=== PATIENT | male | born 1975 | race Caucasian/White ===

== ENCOUNTER 2023-05-02 12:56 | Emergency (ER) | payer OTHER, SELFPAY ==
--- NOTE | ~2023-05-02 | XR_ITS ---
EXAMINATION: XR CHEST CLINICAL INFORMATION: Question pneumonia. Question lung mass. COMPARISON: 09/16/2008. TECHNIQUE: PA and lateral views of the chest. XR/XR chest 2V FINDINGS/IMPRESSION: The left hemidiaphragm is moderately elevated, new compared with September 2008. No focal infiltrate, mass, effusion, pneumothorax, or adenopathy is seen. The cardiac silhouette appears unremarkable. The bones and soft tissues appear unremarkable.
[2023-05-02 13:02] VITALS: BP 150/90; PULSE 65; RESP 16; TEMP 36.6; O2SAT 98; BMI 28.5
--- NOTE | 2023-05-02 13:04 | ED.GENADULT ---
HPI - General Adult General Chief complaint: General Medical Stated complaint: patient came from [place] was told to get Xray Time Seen by Provider: 05/02/23 14:22 Source: patient and family Mode of arrival: ambulatory Limitations: no limitations History of Present Illness HPI narrative: 48-year-old male with a longstanding history of tobacco smoking presents to the ER with concern for abnormal chest x-ray. Per patient he was recently in [place] and was having some throat irritation so he was seen at a hospital there and had a chest x-ray which she was told was abnormal but he does not know the findings. He was told to come back to [facility] and get repeat x-rays done. Patient reports that he has some mild throat irritation but denies any shortness of breath or chest pain. He does have a chronic cough. No hemoptysis. He denies any leg swelling or leg pain. He denies any history of tuberculosis. He denies any weight loss, night sweats, fevers or chills. He does report that he started smoking when he was 16 years old and he has smoked approximately 30 cigarettes per day since then. He has never had any diagnosed lung cancer or breathing problems. He is currently on a wait list for a PCP here in the [place] Related Data Allergies Allergy/AdvReac Type Severity Reaction Status Date / Time No Known Allergies [NKA] Allergy Mild NOT Unverified 04/04/20 17:21 APPLICABLE Review of Systems Review of Systems: Yes all other systems are reviewed and are negative Constitutional: Constitutional: Reports no additional constitutional complaints, Denies body ache(s), Denies chills, Denies fever(s), Denies headache(s) and Denies weakness Eyes: Eyes: Reports no additional eye complaints and Denies change in vision ENT: Reports system reviewed and no additional complaints, except as documented, Denies dizziness, Denies headache(s), Denies nasal congestion, Denies nasal discharge, Denies neck pain and Reports sore throat Cardiovascular: Cardiovascular: Reports no additional cardiovascular complaints, Denies chest pain, Denies leg edema and Denies dyspnea Respiratory: Respiratory: Reports no additional respiratory complaints, Reports cough, Denies hemoptysis and Denies dyspnea Gastrointestinal: Gastrointestinal: Reports no additional gastrointestinal complaints, Denies abdominal pain, Denies diarrhea, Denies nausea and Denies vomiting Genitourinary: Genitourinary: Denies urinary incontinence Musculoskeletal: Musculoskeletal: Reports no additional musculoskeletal complaints, Denies back pain, Denies arthralgias, Denies joint swelling, Denies neck pain, Denies numbness and Denies tingling Integumentary/Breasts: Skin/Breast: Reports system reviewed and no additional complaints, except as docu and Denies rash Neurologic: Reports system reviewed and no additional complaints, except as documented, Denies Abnormal speech present, Denies dizziness, Denies headache(s), Denies numbness, Denies tingling and Denies weakness PMF Past Medical History Attestation statement: The following information was validated with the patient. Source: old records reviewed and nursing notes reviewed Social History Social History Smoked in Last 30 Days: Yes Advance Directives: No Advance Directives Information Provided: No Physical Exam ED Vital Signs: Vital Signs - 24 hr 05/02/23 13:02 Temperature 97.8 F Pulse Rate 65 Respiratory Rate 16 Blood Pressure 150/90 H Pulse Oximetry 98 Oxygen Delivery Method Room Air BMI result Body Mass Index 28.5 Const General: cooperative, healthy appearing, comfortable and no acute distress Orientation/consciousness: patient oriented x3 Limitations: no limitations HENMT Head: Yes normal to inspection Ears: hearing grossly normal bilaterally General nose exam: Normal external nose present Face and sinus: Yes normal facial exam Mouth: Normal oral and palatal mucosa present Throat: Yes posterior oropharynx normal and Yes tonsils normal Eyes General: appearance normal, both eyes and all related structures Pupils: Equal, round and reactive pupils present Neck Neck: Yes normal visual inspection, Yes full ROM, Yes no lymphadenopathy and Yes no meningeal signs Chest Chest palpation & inspection: normal inspection of the chest Resp Effort & Inspection: normal respiratory effort Auscultation: clear to auscultation bilaterally Cardio Rate: regular rate Rhythm: regular rhythm Peripheral pulses: Peripheral pulses 2+ throughout GI Inspection: Yes normal to inspection Palpation (GI): Soft to palpation and nontender Auscultation: normal bowel sounds Back/Spine/Pelvis Thoracic/Lumbar Spine: thoracic and lumbar spine normal to inspection Skin General skin exam: no rashes or lesions noted Neuro General: patient oriented x3, no meningeal signs, no focal motor deficits and normal sensation to monofilament Cranial nerves: Yes Equal, round and reactive pupils present Cognition (Neuro): normal cognition Speech: No Abnormal speech present Gait exam (Neuro): Normal gait present Motor exam (neuro): 5/5 motor strength present throughout Extrem General: Yes normal to inspection, Yes no pedal edema and Yes no calf tenderness Course Course Course Narrative: RME: 48 yold male presents to the ED requesting chest xray. Patient states last wednesday his [place] PCP recommend he get a chest xray. Patient deos not know why. patient asympatomic and denies every having chest pain, shortness of breath, pleurisy, leg swelling, calf pain, or recent trauma. Patient states only chronic cough. Patient has no past medical hisotry Reevaluation(s) Reevaluation #1: patient's chest x-ray shows an elevated left hemidiaphragm an which is an incidental finding. No other acute finding. Patient is nontoxic, well appearing, lungs are clear. Patient does have longstanding history of smoking which does increase his risk for malignancy overall so I do recommend he follow-up with a primary care doctor outpatient for routine follow-up and testing as needed. I did review worrisome signs and symptoms with the patient and when to return to the emergency room. Comfortable plan for discharge home. Medical Decision Making Medical Decision Making MDM Narrative: 48-year-old male with a longstanding history of tobacco smoking presents to the ER with concern for abnormal chest x-ray. Per patient he was recently in [place] and was having some throat irritation so he was seen at a hospital there and had a chest x-ray which she was told was abnormal but he does not know the findings. He was told to come back to [facility] and get repeat x-rays done. Patient reports that he has some mild throat irritation but denies any shortness of breath or chest pain. He does have a chronic cough. He denies any leg swelling or leg pain. He denies any history of tuberculosis. He denies any weight loss, night sweats, fevers or chills. He does report that he started smoking when he was 16 years old and he has smoked approximately 30 cigarettes per day since then. He has never had any diagnosed lung cancer or breathing problems. He is currently on a wait list for a PCP here in the [place] Lungs are clear. Vitals are stable. Asymptomatic here with exception of chronic cough. Will check chest x-ray Differential Diagnosis Differential Diagnoses: The differential diagnosis associated with the presentation includes PNA, malignancy Low concern for PE-PERC 0 Admission/Observation Consideration of admission/observation: Escalation of care including admission/observation considered no hypoxia or tachypnea to suggest need for advanced imaging, admission for supplemental oxygen and or specialist consultation. Independent Interpretation I performed an independent interpretation of an: Plain X-Ray Interpretation: I independently reviewed the x-ray and agree with radiology report Radiology Impression Discussion of test interpretation with radiology: I have reviewed the radiologist's reading. Radiologist Impression: [address] [place] [address] [address] XRay Report Signed Patient: Dominga Cordero MR#: [id number] : 1975 Acct:[id number] Age/Sex: 48 / M ADM Date: 05/02/23 Loc: .ED Attending Dr: Ordering Physician: Hai Watkins Date of Service: 05/02/23 Procedure(s): XR chest 2V Accession Number(s): [id number] cc: Hai Watkins; Physician,None ~ EXAMINATION: XR CHEST CLINICAL INFORMATION: Question pneumonia. Question lung mass. COMPARISON: 09/16/2008. TECHNIQUE: PA and lateral views of the chest. XR/XR chest 2V FINDINGS/IMPRESSION: The left hemidiaphragm is moderately elevated, new compared with September 2008. No focal infiltrate, mass, effusion, pneumothorax, or adenopathy is seen. The cardiac silhouette appears unremarkable. The bones and soft tissues appear unremarkable. Independent Historian Clinical information obtained from an independent historian. History obtained from or confirmed by: Other (daughter ) Tests considered The following testing was considered but not selected: PERC 0, no need for CTA Discharge Plan Discharge Clinical Impression: Cough Patient Disposition: Home, Self-Care Instructions: Chronic Cough (ED) Additional Instructions: your x-ray today shows that your diaphragm is slightly elevated on the left side which is a normal variant seen on x-ray. There is no signs of infection or cancer seen on your x-ray. We do recommend that he stop smoking. We do recommend that you follow a up with a primary care doctor for routine physical exams and testing as needed please return for chest pain, shortness of breath Referrals: Physician,None [Primary Care Provider] - 1 week Interventions: ED Discharge Assessment Last Done: 05/02/23 15:03 Discharge Date/Time: 05/02/23 15:04
== END 2023-05-02 15:04 | disposition home or self-care (01) ==
PROVIDERS: Emergency Provider Emergency Medicine
DX: R05.9 Cough, unspecified (principal); Z87.891 Personal history of nicotine dependence
CPT/HCPCS: 71046; 99283; 99284

== ENCOUNTER 2023-10-21 13:18 | Outpatient (AMB) | payer OTHER, SELFPAY ==
--- NOTE | 2023-10-21 13:19 | MHC.PC.OV ---
Vital Signs 10/21/23 13:20 Height 6 ft Weight 211 lb BMI 28.6 BP 122/82 Blood Pressure Location Rt brachial Position Sitting Pulse 73 Pulse Source Pulse Oximeter Pulse Oximetry (%) 96 Oxygen Delivery Method Room Air Intake Visit Reasons: PE Intake Note: Pt is here today for PE. Allergies No Known Allergies [NKA] Allergy (Mild, Unverified 10/21/23 13:21) NOT APPLICABLE Medication List - Last Reconciled 10/21/23 by Mitra Shen MD Combivent Respimat 20-100 mcg/actuation (ipratropium-albuterol) 1 puff inhalation Q6H NS Tobacco use date assessed: 10/21/23 Dental Screening Dental Screen Date: 10/21/23 Did you have a dental visit in the last 12 months?: Yes Did you have a dental problem in the last 6 months where you did not have access to dental care?: No Was dental information given to patient?: Patient has dentist HPI PE HPI Details Pt presents for CHILD [employer] WORK[employer] PE. Pt c/o intermittent wheezing when laying down and occasionally dry cough. Patient has a history of vocal cords polyps removed over 20 years ago. He smokes 1 pack a day and reports smoker's cough in the morning. Patient complains of bilateral lower extremities anterior tibal achiness worse at night but denies claudication. [facility] Surgical History Hx of left knee surgery Family History Father No problems noted. Mother Hypertension Arrhythmia Cerebral aneurysm Social History Household Members Other:: , Housing: House Patient Tobacco Use Status: Current everyday Tobacco user Tobacco use type: Cigarette Cigarette Packs Per Day: 1 Cigarettes Per Day: 20 e-Cigarette/Vaping Use: Never Used service: No Current occupational status: employed Cognitive needs: No Hearing needs: No Vision needs: No Questionnaire PHQ-9 Over the last 2 weeks, how often have you been bothered by any of the following problems? 1. Little interest or pleasure in doing things: not at all 2. Feeling down, depressed, or hopeless: not at all 3. Trouble falling or staying asleep, or sleeping too much: not at all 4. Feeling tired or having little energy: not at all 5. Poor appetite or overeating: not at all 6. Feeling bad about yourself - or that you are a failure or have let yourself or your family down: not at all 7. Trouble concentrating on things, such as reading the newspaper or watching television: not at all 8. Moving or speaking so slowly that other people could have noticed. Or the opposite - being so fidgety or restless that you have been moving around a lot more than usual: not at all 9. Thoughts that you would be better off or of hurting yourself in some way: not at all Total score: 0 Depression Screening Interpretation: Negative Depression Screening Done: Yes Source: Developed by Drs. Asif Kenny, Teresa Bush, Murali Munroe and colleagues, with an educational peter from [employer]. Thrive Questionnaire Date Thrive assessed: 10/21/23 I am a: Patient What is your living situation today?: I have a steady place to live Within the past 12 months, did the food you bought not last and you didn't have the money to get more?: Never true Within the past 12 months, did you worry whether your food would run out before you got money to buy more?: Never true Do you have trouble paying for medicines?: No Do you have trouble getting transportation to medical appointments?: No Do you have trouble paying your heating and electricity bill?: No Do you have trouble taking care of your child, family member or friend?: No Do you have trouble with day-to-day activities such as bathing, preparing meals, shopping, managing finances, etc.?: No Are you currently unemployed and looking for a job?: No Are you interested in more education?: No Please select the resources that you would like help with: None THRIVE Score: 0 AUDIT C Alcohol Use Questionnaire (AUDIT-C) 1. How often do you have a drink containing alcohol?: Never 3. How often do you have six or more drinks on one occasion?: Never Total Score: 0 KIRT-7 AMB Questionnaire KIRT-7 Date KIRT - 7 assessed: 10/21/23 Feeling nervous, anxious, or on edge: 0 = Not at all Not being able to stop or control worryin = Not at all Worrying too much about different things: 0 = Not at all Trouble relaxin = Not at all Being so restless that it is hard to sit still: 0 = Not at all Becoming easily annoyed or irritable: 0 = Not at all Feeling afraid as if something awful might happen: 0 = Not at all Total KIRT-7 score (0-4 normal; 5-9 mild; 10-14 moderate; 15-21 severe): 0 Source: Developed by Drs. Asif Kenny, Teresa Bush, Murali Munroe and colleagues, with an educational peter from [employer]. Review of Systems Const All systems reviewed & are unremarkable except as noted in HPI and below Reports no additional complaints Eyes Reports no additional complaints ENT Reports no additional complaints Card Reports no additional complaints Resp Reports no additional complaints GI Reports no additional complaints Reports no additional complaints Musc Reports no additional complaints Physical exam (Primary Care) Vital Signs: Last Vital Signs Pulse 73 10/21/23 13:20 BP 122/82 10/21/23 13:20 Pulse Ox 96 10/21/23 13:20 Oxygen Delivery Method Room Air 10/21/23 13:20 BMI result Body Mass Index 28.6 Tobacco/Smoking Status: Tobacco use Status Tobacco use date assessed 10/21/23 10/21/23 13:24 Patient Tobacco Use Status Current everyday Tobacco 10/21/23 13:24 Tobacco use type Cigarette 10/21/23 13:24 e-Cigarette/Vaping Use Never Used 10/21/23 13:24 PHQ-9: PHQ-9 Score PHQ-9: Total score 0 10/21/23 13:34 Depression Screening Interpretation: Negative Thrive Assessment: Date of Thrive Assessment Date Thrive assessed 10/21/23 10/21/23 13:34 Const General: no acute distress HENMT Head: Yes normal to inspection Ears: hearing grossly normal bilaterally General nose exam: Normal external nose present Mouth: Normal oral and palatal mucosa present Teeth and gingiva: dentition normal Throat: Yes posterior oropharynx normal Eyes General: appearance normal, both eyes and all related structures Neck Neck: Yes no lymphadenopathy and Yes supple Resp Effort & Inspection: normal respiratory effort Auscultation: wheezes left upper and diminished lung sounds Cardio Rhythm: regular rhythm Heart sounds: S1 normal heart sound present and S2 normal heart sound present GI Inspection: Yes normal to inspection Palpation (GI): Soft to palpation Percussion: Yes normal to percussion Auscultation: normal bowel sounds Extrem General: Yes no clubbing, cyanosis or edema Assessment and Plan Assessment & Plan (1) Vocal cord polyps: Code(s): J38.1 - Polyp of vocal cord and larynx Plan: Referred to ENT (2) Annual physical exam: Code(s): Z00.00 - Encounter for general adult medical examination without abnormal findings Plan: Well-balanced diet regular physical activity discussed with the patient he will return for fasting blood work. Patient will be referred to GI for colonoscopy. (3) Smoker: Comment: since 14 yo 1 PPD Code(s): F17.200 - Nicotine dependence, unspecified, uncomplicated Plan: Tobacco quitting discussed with the patient (4) Wheezing: Comment: CXR 05/10 elevated left diaphragm, no infiltrates or masses Code(s): R06.2 - Wheezing Plan: Check PFT and try Combivent inhaler, follow-up in 2 months Orders: Orders Lipid Panel Today F17.200 - Nicotine dependence, unspecified, uncomplicated, R06.2 - Wheezing, Z00.00 - Encounter for general adult medical examination without abnormal findings UA w Microscopic Today F17.200 - Nicotine dependence, unspecified, uncomplicated, R06.2 - Wheezing, Z00.00 - Encounter for general adult medical examination without abnormal findings PFT pulmonary function test Today F17.200 - Nicotine dependence, unspecified, uncomplicated, R06.2 - Wheezing, Z00.00 - Encounter for general adult medical examination without abnormal findings Comprehensive Met. Panel Today F17.200 - Nicotine dependence, unspecified, uncomplicated, R06.2 - Wheezing, Z00.00 - Encounter for general adult medical examination without abnormal findings Complete Blood Count Auto Diff Today F17.200 - Nicotine dependence, unspecified, uncomplicated, R06.2 - Wheezing, Z00.00 - Encounter for general adult medical examination without abnormal findings PSA,Total (Free>4and<10) Today F17.200 - Nicotine dependence, unspecified, uncomplicated, R06.2 - Wheezing, Z00.00 - Encounter for general adult medical examination without abnormal findings Vitamin B12 and Folate Today F17.200 - Nicotine dependence, unspecified, uncomplicated, R06.2 - Wheezing, Z00.00 - Encounter for general adult medical examination without abnormal findings Referrals Ear/Nose/Throat Referral J38.1 - Polyp of vocal cord and larynx, Z00.00 - Encounter for general adult medical examination without abnormal findings Gastroenterology Referral F17.200 - Nicotine dependence, unspecified, uncomplicated, R06.2 - Wheezing, Z00.00 - Encounter for general adult medical examination without abnormal findings Medications: New Combivent Respimat 20-100 mcg/actuation (ipratropium-albuterol) 1 puff inhalation Q6H 4 grams 1RF NS Coding Level of Care Code New Pt Prev Care 40-64y(04669) Diagnoses Vocal cord polyps J38.1 Annual physical exam Z00.00 Smoker F17.200 Wheezing R06.2
[2023-10-21 13:20] VITALS: BP 122/82; PULSE 73; O2SAT 96; BMI 28.6
== END 2023-10-21 14:07 | disposition home or self-care (01) ==
PROVIDERS: Visit Provider Internal Medicine
DX: J38.1 Polyp of vocal cord and larynx (principal); Z00.00 Encounter for general adult medical examination without abnormal findings; F17.200 Nicotine dependence, unspecified, uncomplicated; R06.2 Wheezing
CPT/HCPCS: 99386

== ENCOUNTER 2023-11-17 07:02 | Outpatient (REF) | payer OTHER, SELFPAY ==
[2023-11-17 11:32] LABS: MANUAL DIFF FLAG NO
[2023-11-17 11:41] LABS: Imm Gran Abs Auto 0.01 X10*3/uL (0.00-0.03); Lymphocytes Absolute Auto 1.8 X10*3/uL (1.2-4.9); Neutrophils Absolute Auto 3.8 x10*3/uL (2.0-8.3)
[2023-11-17 12:00] LABS: Appearance Urine Clear; Color Urine Yellow; Glucose Urine UA Negative (Negative); Leukocyte Esterase Urine Negative (Negative); Nitrite Urine Negative (Negative); Specific Gravity - Urine <= 1.005 (1.005-1.025); Urine Blood Negative (Negative); Urine Ketones Negative (Negative); Urine Protein Negative (Neg-Trace)
[2023-11-17 12:06] LABS: Bacteria Urine None Seen (None Seen); Hyaline Casts Urine 0-2 /LPF (0-2); RBC Urine 0-2 /HPF (0-2); Squamous Epithelial Cell Urine 0-2 /HPF (0-2); WBC Urine 0-5 /HPF (0-5)
[2023-11-17 12:15] LABS: Alanine Aminotransferase 16 U/L (0-40); Albumin Level 4.4 g/dL (3.5-5.0); Alkaline Phosphatase 57 U/L (39-117); Anion Gap 12 (12-20); Aspartate Amino Transferase 19 U/L (5-37); Bilirubin Total 0.3 mg/dL (0.0-1.0); Blood Urea Nitrogen 12 mg/dL (9-16); Calcium 9.2 mg/dL (8.4-10.2); Carbon Dioxide 24 mmol/L (22-29); Chloride 108 mmol/L (96-108); Cholesterol 142 mg/dL (<200); Estimated Glomerular Filt Rate > 60; Glucose Random 82 mg/dL (60-115); HDL Cholesterol 51 mg/dL (>40); LDL Cholesterol Calculated 85 mg/dL (<100); Potassium 4.2 mmol/L (3.3-5.1); Sodium 140 mmol/L (135-145); Total Protein 7.2 g/dL (6.5-8.0); Triglycerides 32 mg/dL (<150)
[2023-11-17 12:43] LABS: Folate 11.3 ng/mL (> or = 4.0); Vitamin B12 516 pg/mL (200-900)
== END 2023-11-17 07:03 | disposition home or self-care (01) ==
LOC: HO.WFDLDS 07:02
PROVIDERS: Visit Provider Internal Medicine
DX: Z00.00 Encounter for general adult medical examination without abnormal findings (principal); R06.2 Wheezing; F17.200 Nicotine dependence, unspecified, uncomplicated; Z12.5 Encounter for screening for malignant neoplasm of prostate
CPT/HCPCS: 36415; 80053; 80061; 81001; 82607; 82746; 84153; 85025

== ENCOUNTER 2024-06-02 13:33 | Outpatient (REF) | payer OTHER, SELFPAY ==
--- NOTE | 2024-06-02 13:44 | PFT_ITS ---
Flows: FEV1: 70 % of predicted at 2.92 L FVC: 81 % of predicted at 4.32 L FEV1/FVC: 68 % Bronchodilator response: Present in small to medium airways only Volumes: Total lung capacity: 81 % of predicted at 6.22 L Residual volume: 94 % of predicted at 1.87 L Slow vital capacity: 76 % of predicted at 4.35 L Expiratory reserve volume: 53 % of predicted at 0.85 L Diffusion capacity: Normal Impression: Moderate obstructive ventilatory defect with bronchodilator response present in small to medium airways only. MTDD
[2024-06-02 14:27] VITALS: PULSE 71; O2SAT 97
== END 2024-06-02 13:34 | disposition home or self-care (01) ==
LOC: HO.RESP 13:33
PROVIDERS: PCP Internal Medicine; Visit Provider Internal Medicine
DX: R06.2 Wheezing (principal); F17.200 Nicotine dependence, unspecified, uncomplicated
CPT/HCPCS: 94010; 94640; 94727; 94729

== ENCOUNTER → 2024-06-02 13:44 | Outpatient (BNV) | payer OTHER, SELFPAY | PROVIDERS: PCP Internal Medicine; Visit Provider Internal Medicine Pulmonary Disease | DX: R06.2 Wheezing (principal); F17.210 Nicotine dependence, cigarettes, uncomplicated | CPT/HCPCS: 94060; 94727; 94729 ==

== ENCOUNTER 2024-06-20 13:52 | Outpatient (AMB) | payer OTHER, SELFPAY ==
[2024-06-20 14:43] VITALS: BP 128/90; PULSE 76; O2SAT 96; BMI 28.9
--- NOTE | 2024-06-20 14:43 | A.OFFPC_ITS ---
Vital Signs 06/20/24 14:43 Height 6 ft Weight 213 lb BMI 28.9 BP 128/90 H Blood Pressure Location Lt brachial Position Sitting Pulse 76 Pulse Source Pulse Oximeter Pulse Oximetry (%) 96 Oxygen Delivery Method Room Air Intake Visit Reasons: Follow up on results of PFT Intake Note: Pt is here today to discuss PFT results Allergies No Known Allergies [NKA] Allergy (Mild, Unverified 06/20/24 14:43) NOT APPLICABLE Medication List - Last Reconciled 06/20/24 by Mitra Shen MD Breo Ellipta 100-25 mcg/dose (fluticasone furoate-vilanterol) 1 inh inhalation DAILY NS Combivent Respimat 20-100 mcg/actuation (ipratropium-albuterol) 1 puff inhalati on Q6H NS Tobacco use date assessed: 06/20/24 Dental Screening Dental Screen Date: 06/20/24 Did you have a dental visit in the last 12 months?: Yes Did you have a dental problem in the last 6 months where you did not have access to dental care?: No Was dental information given to patient?: Patient has dentist HPI Follow up on results of PFT HPI Details Pt presents for follow-up of asthma. He has been using Combivent on and off with good relief. Patient continues to smoke a pack a day and is planning to quit. [facility] Surgical History Hx of left knee surgery Family History Father No problems noted. Mother Hypertension Arrhythmia Cerebral aneurysm Social History Household Members Other:: , Housing: House Patient Tobacco Use Status: Current everyday Tobacco user Tobacco use type: Cigarette Cigarette Packs Per Day: 1 Cigarettes Per Day: 20 e-Cigarette/Vaping Use: Never Used service: No Current occupational status: employed Cognitive needs: No Hearing needs: No Vision needs: No Questionnaire Thrive Questionnaire Date Thrive assessed: 06/20/24 I am a: Patient KIRT-7 AMB Questionnaire KIRT-7 Date KIRT - 7 assessed: 10/21/23 Source: Developed by Drs. Asif Kenny, Teresa BMurali Gilbert and colleagues, with an educational peter from [employer]. Review of Systems Const All systems reviewed & are unremarkable except as noted in HPI and below Reports no additional complaints Eyes Reports no additional complaints ENT Reports no additional complaints Card Reports no additional complaints Resp Reports no additional complaints GI Reports no additional complaints Reports no additional complaints Physical exam (Primary Care) Vital Signs: Last Vital Signs Pulse 76 06/20/24 14:43 BP 128/90 H 06/20/24 14:43 Pulse Ox 96 06/20/24 14:43 Oxygen Delivery Method Room Air 06/20/24 14:43 BMI result Body Mass Index 28.9 Tobacco/Smoking Status: Tobacco use Status Tobacco use date assessed 06/20/24 06/20/24 14:45 Patient Tobacco Use Status Current everyday Tobacco 06/20/24 14:45 Tobacco use type Cigarette 06/20/24 14:45 e-Cigarette/Vaping Use Never Used 06/20/24 14:45 Thrive Assessment: Date of Thrive Assessment Date Thrive assessed 06/20/24 06/20/24 14:45 Const General: no acute distress HENMT Head: Yes normal to inspection Resp Effort & Inspection: normal respiratory effort Auscultation: diminished lung sounds on the left in the lower lung mata Cardio Rhythm: regular rhythm Heart sounds: S1 normal heart sound present and S2 normal heart sound present GI Inspection: Yes normal to inspection Palpation (GI): Soft to palpation Percussion: Yes normal to percussion Coding Level of Care Code Est Pt Level 3 (79442) Diagnoses Smoker F17.200 Asthma J45.909 Lung nodule seen on imaging study R91.1 Assessment & Plan Assessment & Plan (1) Smoker: Comment: since 14 yo 1 PPD Code(s): F17.200 - Nicotine dependence, unspecified, uncomplicated Category: Social Hx Plan: Tobacco quitting discussed with the patient he will try Chantix (2) Asthma: Comment: PFT 05/2024 Code(s): J45.909 - Unspecified asthma, uncomplicated Category: Medical Plan: Start Breo and use Combivent as needed only (3) Lung nodule seen on imaging study: Comment: CXR elevated left diaphragm, ? Lung nodules Code(s): R91.1 - Solitary pulmonary nodule Category: Medical Plan: Obtain CT of the chest to evaluate for lung nodules and elevated left diaphragm Orders: Orders CT chest wo con - High Res Today R06.2 - Wheezing, R91.1 - Solitary pulmonary nodule Medications: New Breo Ellipta 100-25 mcg/dose (fluticasone furoate-vilanterol) 1 inh inhalation DAILY 60 ea 3RF NS varenicline (Chantix Starting Month Box) PO PER PKG DIR 53 ea 0RF varenicline (Chantix Continuing Month Box) 1 mg PO BID 56 tabs 1RF
== END 2024-06-20 15:04 | disposition home or self-care (01) ==
PROVIDERS: PCP Internal Medicine; Visit Provider Internal Medicine
DX: F17.200 Nicotine dependence, unspecified, uncomplicated (principal); J45.909 Unspecified asthma, uncomplicated; R91.1 Solitary pulmonary nodule

== ENCOUNTER → 2024-06-20 13:52 | Outpatient (BNVA) | payer OTHER, SELFPAY | PROVIDERS: PCP Internal Medicine; Visit Provider Internal Medicine ==

== ENCOUNTER 2024-11-08 13:00 | Outpatient (AMB) | payer OTHER, SELFPAY ==
--- NOTE | 2024-11-08 13:16 | A.OFFVIS_ITS ---
Vital Signs 11/08/24 13:22 Height 6 ft Weight 212 lb BMI 28.7 BP 146/96 H Blood Pressure Location Lt brachial Position Sitting Pulse 76 Pulse Source Pulse Oximeter Pulse Oximetry (%) 96 Oxygen Delivery Method Room Air Intake Visit Reasons: pre colonoscopy Intake Note: NEW PATIENT for initial colo screening. Chief Complaint; Pt denies any GI sx or concerns at this time. No pertinent FMHx. Technology Methodology Consultant Required: Yes Technology Methodology Consultant Services: Technology Methodology Consultant Offered & Declined Accompanied by: Family/Other Allergies No Known Allergies [NKA] Allergy (Mild, Unverified 11/08/24 13:27) NOT APPLICABLE HPI HPI pre colonoscopy: Details: 49 year old? male here today for pre colonoscopy screening.? Patient was sent to us by his PCP.? This is his first colonoscopy screening.? Patient denies any gastrointestinal symptoms in the past or at present.? Denies any personal or family history of gastrointestinal disease, colon polyps, or CRC.? Denies history of difficulty with sedation or anesthesia in the past.? Negative for history of sleep apnea.? Denies any history of cardiac, renal, pulmonary, or hepatic disease.?? No history of infectious? diseases like hepatitis A, B, C, HIV or tuberculosis.? Patient is not on any anticoagulation PFSH Surgical History Hx of left knee surgery Family History Father No problems noted. Mother Hypertension Arrhythmia Cerebral aneurysm Social History Household Members Other:: , Housing: House Patient Tobacco Use Status: Current everyday Tobacco user Tobacco use type: Cigarette Cigarette Packs Per Day: 1 Cigarettes Per Day: 20 e-Cigarette/Vaping Use: Never Used service: No Current occupational status: employed Cognitive needs: No Hearing needs: No Vision needs: No Review of Systems Const Denies weight gain and Denies weight loss ENT Reports no additional complaints, Denies dysphagia and Denies odynophagia Card Reports no additional complaints Resp Reports no additional complaints GI Denies abdominal pain, Denies belching, Denies melena, Denies bloating, Denies change in bowel habits, Denies dysphagia, Denies excessive flatus, Denies dyspepsia, Denies heartburn, Denies diarrhea, Denies loose stools, Denies nausea, Denies odynophagia and Denies vomiting Reports no additional complaints Musc Reports no additional complaints Neuro Reports no additional complaints Psych Reports no additional complaints Endo Reports no additional complaints Physical Exam Vital Signs: Last Vital Signs Pulse 76 11/08/24 13:22 BP 146/96 H 11/08/24 13:22 Pulse Ox 96 11/08/24 13:22 Oxygen Delivery Method Room Air 11/08/24 13:22 BMI result Body Mass Index 28.7 Const General: healthy appearing, no acute distress and well developed Nutritional Appearance: well nourished Orientation/consciousness: patient oriented x3 Resp Effort & Inspection: normal respiratory effort, able to speak in complete sentences, no tracheal deviation and symmetric chest movement Auscultation: clear to auscultation bilaterally Cardio Rate: regular rate GI Inspection: Yes normal to inspection and No distended Palpation (GI): Soft to palpation, not firm, nontender and No hepatosplenomegaly present Auscultation: normal bowel sounds General: Yes no CVA tenderness Back/Spine/Pelvis Back: no CVA tenderness Skin General skin exam: elasticity normal, turgor normal and dry skin Neuro General: patient oriented x3 Psych Appearance: grossly normal Mental Status: mental status grossly normal Assessment & Plan Assessment & Plan (1) Screen for colon cancer: Code(s): Z12.11 - Encounter for screening for malignant neoplasm of colon Plan Patient denies any GI, cardiac or respiratory symptoms.? Denies any issues with anesthesia in the past.? Denies any history of sleep apnea.? No history infectious diseases in the past or present.? Not on any anticoagulation therapy.? No family or personal history of colon cancer or polyps.? Patient denies melena, hematochezia, unintentional weight loss or ribbon like stools.? Discussed at length the pre-procedure,? prep, diet & medications as well as what to expect prior, during and after the procedure.?? Stressed the importance of good bowel prep.? Recommended the use of Vaseline or Calmoseptine OTC & baby wipes with bowel movements to promote comfort.? ?Patient verbalizes understanding and agrees to plan of care.? He was given the opportunity to ask questions and all questions answered.? We will see him after the procedure.? Medications: New polyethylene glycol 3350 (Miralax) As directed by gastroenterology department at [facility] 238 grams PO ONCE 238 grams 0RF Z12.11 - Encounter for screening for malignant neoplasm of colon bisacodyl (Dulcolax (bisacodyl)) take 4 tabs at noon the day before your colonoscopy 20 mg (4 x 5 mg) PO ONCE 1 day 4 tabs 0RF Z12.11 - Encounter for screening for malignant neoplasm of colon Coding Level of Care Code New Pt Level 3 (37174) Diagnoses Screen for colon cancer Z12.11 Time Spent (min) 40 Comment 30 minutes spent with patient and additional 10 minutes spent reviewing his records
[2024-11-08 13:22] VITALS: BP 146/96; PULSE 76; O2SAT 96; BMI 28.7
== END 2024-11-08 14:11 | disposition home or self-care (01) ==
LOC: HO.HGI 13:01
PROVIDERS: PCP Internal Medicine; Visit Provider Nurse Practitioner Family
DX: Z01.818 Encounter for other preprocedural examination (principal); Z12.11 Encounter for screening for malignant neoplasm of colon
CPT/HCPCS: 99202

== ENCOUNTER 2025-05-31 12:45 | Outpatient (AMB) | payer OTHER, SELFPAY ==
--- NOTE | 2025-05-31 12:54 | A.OFFPC_ITS ---
Vital Signs 05/31/25 12:55 Height 6 ft Weight 206 lb BMI 27.9 BP 126/82 Blood Pressure Location Lt brachial Position Sitting Respiration 18 Pulse 75 Pulse Source Pulse Oximeter Temp 98.5 F Temp Source Oral Pulse Oximetry (%) 97 Oxygen Delivery Method Room Air Intake Visit Reasons: cough Intake Note: Pt is here today for sick visit. Pt c/o cough, sob, runny nose for 3 days. Allergies No Known Allergies (NKA) Allergy (Mild, Unverified 05/31/25 13:00) NOT APPLICABLE Medication List - Last Reconciled 05/31/25 by Mitra Shen MD bisacodyl (Dulcolax (bisacodyl)) 20 mg (4 x 5 mg) PO ONCE 1 day Breo Ellipta 100-25 mcg/dose (fluticasone furoate-vilanterol) 1 inh inhalation DAILY NS Combivent Respimat 20-100 mcg/actuation (ipratropium-albuterol) 1 puff inhalation Q6H NS hydroxyzine HCl 10 mg PO BEDTIME polyethylene glycol 3350 (Miralax) 238 grams PO ONCE varenicline tartrate (Chantix Continuing Month Box) 1 mg PO BID varenicline tartrate (Chantix Starting Month Box) PO PER PKG DIR Tobacco use date assessed: 05/31/25 Dental Screening Dental Screen Date: 05/31/25 Did you have a dental visit in the last 12 months?: Yes Did you have a dental problem in the last 6 months where you did not have access to dental care?: No Was dental information given to patient?: Patient has dentist HPI cough HPI Details Patient presents complaining of persistent cough postnasal drip and intermittent wheezing for a few months. he used Breo inhaler with Combivent for few months frm July through September with good relief. Patient has stopped using both inhalers recently. He is exposed to a lot of wood dust at work and does not wear face mask. He complains of anxiety and insomnia recently. Patient has been abusing alcohol for the last few weeks but stopped drinking about a week ago.. He is contemplating quitting alcohol and smoking. Patient used to see a counselor but is not interested in psychotherapy or long-term medications or AA meetings. [facility], [facility] Medical History (Updated 05/31/25 @ 15:21 by Mitra Shen MD) Smoker Vocal cord polyps Wheezing Asthma Surgical History Hx of left knee surgery Family History Father No problems noted. Mother Hypertension Arrhythmia Cerebral aneurysm Social History Household Members Other:: , Housing: House Patient Tobacco Use Status: Current everyday Tobacco user Tobacco use type: Cigarette Cigarette Packs Per Day: 1 Cigarettes Per Day: 20 e-Cigarette/Vaping Use: Never Used service: No Current occupational status: employed Cognitive needs: No Hearing needs: No Vision needs: No Questionnaire PHQ-9 Over the last 2 weeks, how often have you been bothered by any of the following problems? 1. Little interest or pleasure in doing things: not at all 2. Feeling down, depressed, or hopeless: not at all 3. Trouble falling or staying asleep, or sleeping too much: not at all 4. Feeling tired or having little energy: not at all 5. Poor appetite or overeating: not at all 6. Feeling bad about yourself - or that you are a failure or have let yourself or your family down: not at all 7. Trouble concentrating on things, such as reading the newspaper or watching television: not at all 8. Moving or speaking so slowly that other people could have noticed. Or the opposite - being so fidgety or restless that you have been moving around a lot more than usual: not at all 9. Thoughts that you would be better off or of hurting yourself in some way: not at all Total score: 0 Depression Screening Interpretation: Negative Depression Screening Done: Yes 38503 - PHQ-9 Billing: Yes Source: Developed by Drs. Asif Kenny, Teresa Bush, Muarli Munroe and colleagues, with an educational peter from [employer]. Thrive Questionnaire Date Thrive assessed: 05/31/25 I am a: Patient What is your living situation today?: I choose not to answer this question Within the past 12 months, did the food you bought not last and you didn't have the money to get more?: Sometimes True Within the past 12 months, did you worry whether your food would run out before you got money to buy more?: I choose not to answer this question Do you have trouble paying for medicines?: No Do you have trouble getting transportation to medical appointments?: No Do you have trouble paying your heating and electricity bill?: No Do you have trouble taking care of your child, family member or friend?: No Do you have trouble with day-to-day activities such as bathing, preparing meals, shopping, managing finances, etc.?: No Are you currently unemployed and looking for a job?: No Are you interested in more education?: I choose not to answer this question Please select the resources that you would like help with: Transportation THRIVE Score: 1 KIRT-7 AMB Questionnaire KIRT-7 Date KIRT - 7 assessed: 05/31/25 Feeling nervous, anxious, or on edge: 0 = Not at all Not being able to stop or control worryin = Not at all Worrying too much about different things: 0 = Not at all Trouble relaxin = Not at all Being so restless that it is hard to sit still: 0 = Not at all Becoming easily annoyed or irritable: 0 = Not at all Feeling afraid as if something awful might happen: 0 = Not at all Total KIRT-7 score (0-4 normal; 5-9 mild; 10-14 moderate; 15-21 severe): 0 Source: Developed by Drs. Asif Kenny, Teresa Bush, Murali Munroe and colleagues, with an educational peter from [employer]. KIRT-7 Assessment Billing KIRT-7 Assessment Tool: KIRT-7 Assessment 36751 Review of Systems Const All systems reviewed & are unremarkable except as noted in HPI and below ENT Reports no additional complaints Card Reports no additional complaints Resp Reports no additional complaints GI Reports no additional complaints Reports no additional complaints Physical exam (Primary Care) Vital Signs: Last Vital Signs Temp 98.5 F 05/31/25 12:55 Pulse 75 05/31/25 12:55 Resp 18 05/31/25 12:55 BP 126/82 05/31/25 12:55 Pulse Ox 97 05/31/25 12:55 Oxygen Delivery Method Room Air 05/31/25 12:55 BMI result Body Mass Index 27.9 Tobacco/Smoking Status: Tobacco use Status Tobacco use date assessed 05/31/25 05/31/25 13:02 Patient Tobacco Use Status Current everyday Tobacco 05/31/25 12:55 Tobacco use type Cigarette 05/31/25 12:55 e-Cigarette/Vaping Use Never Used 05/31/25 12:55 PHQ-9: PHQ-9 Score PHQ-9: Total score 0 05/31/25 13:02 Depression Screening Interpretation: Negative Thrive Assessment: Date of Thrive Assessment Date Thrive assessed 05/31/25 05/31/25 12:55 Const General: no acute distress HENMT Head: Yes normal to inspection Eyes General: appearance normal, both eyes and all related structures Resp Effort & Inspection: normal respiratory effort Auscultation: wheezes and diminished lung sounds Cardio Rhythm: regular rhythm Heart sounds: S1 normal heart sound present and S2 normal heart sound present GI Inspection: Yes normal to inspection Palpation (GI): Soft to palpation Percussion: Yes normal to percussion Auscultation: normal bowel sounds Coding Level of Care Code Est Pt Level 4 (09665) Diagnoses Asthma J45.909 Smoker F17.200 Alcohol abuse F10.10 Additional Codes KIRT-7 Assessment Billing - KIRT-7 Assessment Tool: KIRT-7 Assessment 25848 ([id number]) PHQ-9 - 09351 - PHQ-9 Billing: Yes ([id number]) Assessment & Plan Assessment & Plan (1) Asthma: Comment: PFT 05/2024, moderate obstructive ventilatory defect with bronchodilator response in small and medium bronchi Code(s): J45.909 - Unspecified asthma, uncomplicated Category: Medical Plan: Advised to restart Breo and Combivent up to twice a day. He was advised to avoid exposure to wood dust and wear mask at work, follow-up in 1 month (2) Smoker: Comment: 1 PPD Code(s): F17.200 - Nicotine dependence, unspecified, uncomplicated Category: Social Hx Plan: Tobacco quitting discussed with the patient. He will try Chantix (3) Alcohol abuse: Code(s): F10.10 - Alcohol abuse, uncomplicated Category: Social Hx Plan: Cutting down on alcohol intake discussed with the patient Orders: Orders Lipid Panel Today Z00.00 - Encounter for general adult medical examination without abnormal findings Comprehensive [place]. Panel Fast Today Z00.00 - Encounter for general adult medical examination without abnormal findings Complete Blood Count Auto Diff Today Z00.00 - Encounter for general adult medical examination without abnormal findings PSA,Total (Free>4and<10) Today Z00.00 - Encounter for general adult medical examination without abnormal findings UA w Microscopic Today Z00.00 - Encounter for general adult medical examination without abnormal findings Medications: New hydroxyzine HCl 10 mg PO BEDTIME 20 tabs 0RF varenicline tartrate (Chantix Continuing Month Box) 1 mg PO BID 56 tabs 1RF varenicline tartrate (Chantix Starting Month Box) PO PER PKG DIR 53 ea 0RF Refilled Breo Ellipta 100-25 mcg/dose (fluticasone furoate-vilanterol) 1 inh inhalation DAILY 60 ea 3RF NS Combivent Respimat 20-100 mcg/actuation (ipratropium-albuterol) 1 puff inhalation Q6H 4 grams 1RF NS
[2025-05-31 12:55] VITALS: BP 126/82; PULSE 75; RESP 18; TEMP 36.9; O2SAT 97; BMI 27.9
== END 2025-05-31 13:50 | disposition home or self-care (01) ==
LOC: HO.HMCC 12:46
PROVIDERS: PCP Internal Medicine; Visit Provider Internal Medicine
DX: J45.909 Unspecified asthma, uncomplicated (principal); F17.200 Nicotine dependence, unspecified, uncomplicated; F10.10 Alcohol abuse, uncomplicated

== ENCOUNTER → 2025-05-31 12:45 | Outpatient (BNVA) | payer OTHER, SELFPAY | PROVIDERS: PCP Internal Medicine; Visit Provider Internal Medicine | DX: R05.3 Chronic cough (principal); R09.82 Postnasal drip; J45.909 Unspecified asthma, uncomplicated; F10.10 Alcohol abuse, uncomplicated; F17.210 Nicotine dependence, cigarettes, uncomplicated | CPT/HCPCS: 96127 ==

== ENCOUNTER 2025-06-29 07:46 | Outpatient (REF) | payer OTHER, SELFPAY ==
[2025-06-29 11:09] LABS: MANUAL DIFF FLAG NO
[2025-06-29 11:20] LABS: Hematocrit 48.7 % (42.0-52.0); Hemoglobin 16.1 g/dl (14.0-18.0); Imm Gran Abs Auto 0.01 X10*3/uL (0.00-0.03); Imm Gran Pct Auto 0.2 % (0.0-0.4); Lymphocytes Absolute Auto 1.7 X10*3/uL (1.2-4.9); Mean Corpuscular HGB Conc 33.1 g/dl (31.0-36.0); Mean Corpuscular Hemoglobin 31.3 pg (27.0-33.0); Mean Corpuscular Volume 94.7 fL (80.0-98.0); NRBC Abs Auto 0.000 X10*3/uL (0.0-0.012); NRBC Pct Auto 0.0 /100WBC (0.0-0.2); Platelet Count 211 X10*3/uL (160-400); Red Blood Count 5.14 X10*6/uL (4.60-5.80); White Blood Count 6.4 X10*3/uL (4.8-10.8)
[2025-06-29 11:30] LABS: Alanine Aminotransferase 29 U/L (0-40); Albumin Level 4.6 g/dL (3.5-5.0); Alkaline Phosphatase 64 U/L (39-117); Anion Gap 11 (12-20); Aspartate Amino Transferase 28 U/L (5-37); Blood Urea Nitrogen 13 mg/dL (9-16); Calcium 9.7 mg/dL (8.4-10.2); Carbon Dioxide 27 mmol/L (22-29); Chloride 109 mmol/L (96-108); Cholesterol 155 mg/dL (<200); Estimated Glomerular Filt Rate > 60; HDL Cholesterol 50 mg/dL (>40); Potassium 5.6 mmol/L (3.3-5.1); Sodium 141 mmol/L (135-145); Total Protein 7.0 g/dL (6.5-8.0); Triglycerides 48 mg/dL (<150)
[2025-06-29 11:54] LABS: Appearance Urine Clear; Glucose Urine UA Negative (Negative); PH 5.5 (5.0-9.0); Specific Gravity - Urine 1.015 (1.005-1.025)
[2025-06-29 12:01] LABS: PSA,Total (Free>4and<10) 0.78 ng/mL (0.00-4.00)
== END 2025-06-29 07:47 | disposition home or self-care (01) ==
LOC: HO.WFDLDS 07:46
PROVIDERS: Visit Provider Internal Medicine
DX: Z00.00 Encounter for general adult medical examination without abnormal findings (principal); Z12.5 Encounter for screening for malignant neoplasm of prostate; Z13.0 Encounter for screening for diseases of the blood and blood-forming organs and certain disorders involving the immune mechanism; Z13.6 Encounter for screening for cardiovascular disorders
CPT/HCPCS: 36415; 80053; 80061; 81001; 84153; 85025

== ENCOUNTER 2025-07-03 13:34 | Outpatient (AMB) | payer OTHER, SELFPAY ==
[2025-07-03 14:10] VITALS: BP 124/80; PULSE 72; RESP 16; TEMP 36.8; O2SAT 95; BMI 27.9
--- NOTE | 2025-07-03 14:10 | A.OFFPC_ITS ---
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: No Allergies No Known Allergies (NKA) Allergy (Mild, Unverified 05/31/25 13:00) NOT APPLICABLE Medication List - Last Reconciled 07/03/25 by Mitra Shen MD bisacodyl (Dulcolax (bisacodyl)) 20 mg (4 x 5 mg) PO ONCE 1 day Breo Ellipta 100-25 mcg/dose (fluticasone furoate-vilanterol) 1 inh inhalation DAILY NS Combivent Respimat 20-100 mcg/actuation (ipratropium-albuterol) 1 puff inhalation Q6H NS hydroxyzine HCl 10 mg PO BEDTIME polyethylene glycol 3350 (Miralax) 238 grams PO ONCE varenicline tartrate (Chantix Continuing Month Box) 1 mg PO BID varenicline tartrate (Chantix Starting Month Box) PO PER PKG DIR Tobacco use date assessed: 05/31/25 Dental Screening Dental Screen Date: 05/31/25 HPI 1 mo follow up HPI Details Patient presents for the follow-up asthma/COPD. He has been taking Breo inhaler and is feeling better. Patient has been using Combivent on and off up to twice a day. He has been cutting down on smoking down to half a pack a day. Anxiety improved and patient has not had to take hydroxyzine regularly [facility] Medical History (Updated 07/03/25 @ 14:29 by Mitra Shen MD) Colon cancer screening Smoker Vocal cord polyps Wheezing Asthma Surgical History Hx of left knee surgery Family History Father No problems noted. Mother Hypertension Arrhythmia Cerebral aneurysm Social History Household Members Other:: , Housing: House Patient Tobacco Use Status: Current everyday Tobacco user Tobacco use type: Cigarette Cigarette Packs Per Day: 1 Cigarettes Per Day: 20 e-Cigarette/Vaping Use: Never Used service: No Current occupational status: employed Cognitive needs: No Hearing needs: No Vision needs: No Questionnaire Thrive Questionnaire Date Thrive assessed: 05/31/25 I am a: Patient What is your living situation today?: I choose not to answer this question Within the past 12 months, did the food you bought not last and you didn't have the money to get more?: Sometimes True Within the past 12 months, did you worry whether your food would run out before you got money to buy more?: I choose not to answer this question Do you have trouble paying for medicines?: No Do you have trouble getting transportation to medical appointments?: No Do you have trouble paying your heating and electricity bill?: No Do you have trouble taking care of your child, family member or friend?: No Do you have trouble with day-to-day activities such as bathing, preparing meals, shopping, managing finances, etc.?: No Are you currently unemployed and looking for a job?: No Are you interested in more education?: I choose not to answer this question Please select the resources that you would like help with: Transportation Currently or been in a relationship where the following occur: I choose not to answer THRIVE Score: 1 KIRT-7 AMB Questionnaire KIRT-7 Date KIRT - 7 assessed: 05/31/25 Source: Developed by Drs. Asif Kenny, Teresa Buhs, Murali Munroe and colleagues, with an educational peter from [employer]. Review of Systems Const All systems reviewed & are unremarkable except as noted in HPI and below Eyes Reports no additional complaints ENT Reports no additional complaints Card Reports no additional complaints Resp Reports no additional complaints GI Reports no additional complaints Physical exam (Primary Care) Vital Signs: Last Vital Signs Temp 98.2 F 07/03/25 14:10 Pulse 72 07/03/25 14:10 Resp 16 07/03/25 14:10 BP 124/80 07/03/25 14:10 Pulse Ox 95 07/03/25 14:10 Oxygen Delivery Method Room Air 07/03/25 14:10 BMI result Body Mass Index 27.9 Tobacco/Smoking Status: Tobacco use Status Tobacco use date assessed 05/31/25 07/03/25 14:11 Patient Tobacco Use Status Current everyday Tobacco 07/03/25 14:11 Tobacco use type Cigarette 07/03/25 14:11 e-Cigarette/Vaping Use Never Used 07/03/25 14:11 Thrive Assessment: Date of Thrive Assessment Date Thrive assessed 05/31/25 07/03/25 14:11 Currently or been in a relationship where the following occur: I choose not to answer Const General: no acute distress HENMT Head: Yes normal to inspection Eyes General: appearance normal, both eyes and all related structures Resp Effort & Inspection: normal respiratory effort Auscultation: clear to auscultation bilaterally Cardio Rhythm: regular rhythm Heart sounds: S1 normal heart sound present and S2 normal heart sound present Coding Level of Care Code Est Pt Level 4 (22405) Diagnoses Smoker F17.200 Asthma J45.909 Assessment & Plan Assessment & Plan (1) Smoker: Comment: 1 PPD x 30 yrs Code(s): F17.200 - Nicotine dependence, unspecified, uncomplicated Category: Social Hx Plan: Tobacco quitting discussed with the patient. He will be referred to lung cancer screening program (2) Asthma: Comment: PFT 05/2024, moderate obstructive ventilatory defect with bronchodilator response in small and medium bronchi Code(s): J45.909 - Unspecified asthma, uncomplicated Category: Medical Plan: Change Breo to Trelegy 100 mcg, continue albuterol PRN follow-up in 4 months Orders: Referrals Lung Cancer Screening Referral F17.200 - Nicotine dependence, unspecified, uncomplicated Medications: New nfelsmrgmit-[id number]-tlesswkm 100-62.5-25 mcg (Trelegy Ellipta) 1 inh inhalation DAILY 60 ea 4RF Refilled varenicline tartrate (Chantix Continuing Month Box) 1 mg PO BID 56 tabs 1RF hydroxyzine HCl 10 mg PO BEDTIME 30 tabs 3RF Discontinued Breo Ellipta 100-25 mcg/dose (fluticasone furoate-vilanterol) Discontinued Reason: Doctor's Order 1 inh inhalation DAILY 60 ea 3RF NS
== END 2025-07-03 15:26 | disposition home or self-care (01) ==
LOC: HO.HMCC 13:35
PROVIDERS: PCP Internal Medicine; Visit Provider Internal Medicine
DX: F17.200 Nicotine dependence, unspecified, uncomplicated (principal); J45.909 Unspecified asthma, uncomplicated